=== PATIENT | male | born 1950 | race Caucasian/White ===

== ENCOUNTER → 2019-02-19 | Day surgery (SDC) | payer OTHER ==
[~2019-02-19] VITALS: Ht 182.8 cm; Wt 102.1 kg
[~2019-02-19] MED LIST: DAYPRO600 M1 PO; FLOMAX0.4 MG PO; HCTZ/TRIAMTEREN1 CA2 PO; MIRALAX POWDER255 GM PO; SKELAXIN800 MG PO; ULTRAM50 MG PO; VICODIN 500 MG-1 TAB PO; XANAX0.5 MG PO
--- NOTE | ~2019-02-19 | PROC NOTE ---
[place], [place] PROCEDURE NOTE [facility]: [id number] UNIT #: [id number] ROOM: DOCTOR: HERB GARBER MD,JULIAN BIRTHDATE: [birth year] DOS: 02/19/2019 PROCEDURE: Bronchoscopy and bronchial washing of the right lower lobe. 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 PROCEDURE DESCRIPTION: Informed consent obtained for the patient. He was brought to the OR and placed in a supine position. Conscious sedation administered by the Anesthesia Department. After achieving proper sedation, airway introduced into the mouth. Bronchoscope advanced to the airway into laryngeal area. Epiglottis and vocal cords were seen. Vocal moving symmetrically with movements. Bronchoscope advanced into the tracheal lumen. Tracheal lumen noted. Mild to moderate amount of secretion, which appeared to be mucoid. Secretions suctioned out betty level. Similar secretion present in endobronchial tree subsegments bilaterally as well, which were cleared out. After that, the patient BAL specimen was also obtained in the right lower lobe bronchus subsegment. Procedure was well tolerated by the patient without difficulty. Postoperative findings will be discussed with the patient once the patient recover the effects of acute sedation. JULIAN ESTEVEZ MD CM:PROCNOTE:PROCEDURE NOTE [id number] JULIAN GARBER MD
[2019-02-19 08:00] VITALS: BP 142/73
[2019-02-19 08:57] VITALS: BP 131/78
[2019-02-19 09:12] VITALS: BP 134/81
[2019-02-19 09:27] VITALS: BP 132/77
--- NOTE | 2019-02-19 10:52 | NUR ---
iv fluids discontinued at 0925.
[2019-02-19 12:18] LABS: BF LYMPHOCYTES 11 %; BF MACROPHAGES 8 %; BF NEUTROPHILS 76 %
[2019-02-20 17:08] LABS: ACID FAST SPEC PROCESSING Concentration (.)
[2019-02-20 17:08] LABS: ACID FAST SPEC PROCESSING Concentration (.)
== END | disposition home or self-care (01) ==
LOC: SDC 02-16 10:15
PROVIDERS: Internal Medicine Critical Care Medicine
DX: J84.9 Interstitial pulmonary disease, unspecified (principal); R05 Cough; J05.10 Acute epiglottitis without obstruction; J84.113 Idiopathic non-specific interstitial pneumonitis; I10 Essential (primary) hypertension; M10.9 Gout, unspecified; R63.4 Abnormal weight loss; Z98.890 Other specified postprocedural states; Z79.899 Other long term (current) drug therapy; Z88.8 Allergy status to other drugs, medicaments and biological substances; Z86.73 Personal history of transient ischemic attack (TIA), and cerebral infarction without residual deficits; Z80.1 Family history of malignant neoplasm of trachea, bronchus and lung

== ENCOUNTER → 2019-09-29 | Outpatient (CLI) | payer OTHER ==
[2019-09-29 12:07] LABS: BASO % 0.5 % (0.0-1.0); EOS # 0.2 10*3/uL (0.0-0.4); HEMATOCRIT 48.5 % (42.0-52.0); LYMPH # 1.5 10*3/uL (1.3-4.4); LYMPH % 18.1 % (27.0-41.0); MEAN CELL VOLUME 88.7 fl (80.0-94.0); MEAN CORPUSCULAR HGB CONC 33.8 g/dl (33.0-37.0); MEAN PLATELET VOLUME 9.7 fl (9.6-12.3); MONO # 0.6 10*3/uL (0.1-1.0); MONO % 7.6 % (3.0-9.0); NEUT # 5.8 10*3/uL (2.3-7.9); NEUT % 71.6 % (47.0-73.0); PLATELET COUNT AUTOMATED 241 10*3/uL (130-400); RED BLOOD COUNT 5.47 10*6/uL (4.50-5.90); RED CELL DISTRI WIDTH 12.2 % (0-14.5); WHITE BLOOD COUNT 8.1 10*3/uL (4.8-10.8)
[2019-09-29 12:34] LABS: ALBUMIN 4.2 gm/dl (3.1-4.5); ALKALINE PHOSPHATASE 116 U/L (45-117); BUN 14 mg/dl (7-24); CHLORIDE 99 mmol/L (98-107); CREATININE 1.28 mg/dL (0.70-1.30); POTASSIUM 3.3 mmol/L (3.5-5.1); SGOT/AST 23 IU/L (3-35); SGPT/ALT 29 U/L (12-78); SODIUM 135 mmol/L (136-145)
== END | disposition home or self-care (01) ==
LOC: LAB 11:43
PROVIDERS: Internal Medicine Critical Care Medicine
DX: Z79.899 Other long term (current) drug therapy (principal)

== ENCOUNTER 2020-09-13 11:46 | Inpatient (IN) | payer OTHER ==
[~2020-09-13] VITALS: Ht 180.3 cm; Wt 82.7 kg
[2020-09-13 11:47] VITALS: BP 133/84
[2020-09-13 12:04] VITALS: BP 90/70
[2020-09-13 12:09] LABS: BASO % 0.5 % (0.0-1.0); EOS # 0.2 10*3/uL (0.0-0.4); EOS % 2.2 % (1.0-4.0); HEMATOCRIT 38.1 % (42.0-52.0); LYMPH # 1.2 10*3/uL (1.3-4.4); LYMPH % 13.4 % (27.0-41.0); MEAN CELL VOLUME 86.2 fl (80.0-94.0); MEAN CORPUSCULAR HGB 28.5 pg (27.0-31.0); MEAN CORPUSCULAR HGB CONC 33.1 g/dl (33.0-37.0); MEAN PLATELET VOLUME 9.1 fl (9.6-12.3); MONO # 0.7 10*3/uL (0.1-1.0); MONO % 8.5 % (3.0-9.0); NEUT # 6.6 10*3/uL (2.3-7.9); NEUT % 75.1 % (47.0-73.0); PLATELET COUNT AUTOMATED 318 10*3/uL (130-400); RED BLOOD COUNT 4.42 10*6/uL (4.50-5.90); RED CELL DISTRI WIDTH 12.4 % (0-14.5); WHITE BLOOD COUNT 8.8 10*3/uL (4.8-10.8)
[2020-09-13 12:19] LABS: ACT PARTIAL THROMBO TIME 26.3 SECONDS (20.0-32.1)
[2020-09-13] MEDS ORDERED: TRIAMTERENE & H1 CAP PO (12:20)
[2020-09-13] MEDS ORDERED: BUSPIRONE10 MG PO (12:20)
[2020-09-13] MEDS ORDERED: FELODIPINE5 MG PO (12:20)
[2020-09-13] MEDS ORDERED: TRAZODONE50 MG PO (12:21)
[2020-09-13] MEDS ORDERED: PRASUGREL HCL10 MG PO (12:22)
[2020-09-13] MEDS ORDERED: ESBRIET267 MG PO (12:22)
[2020-09-13] MEDS ORDERED: ASPIRIN CHEWABL81 MG PO (12:22)
[2020-09-13] MEDS ORDERED: PRAVASTATIN SOD20 MG PO (12:24)
[2020-09-13 12:25] LABS: ALBUMIN 3.6 gm/dl (3.1-4.5); ALKALINE PHOSPHATASE 173 U/L (45-117); BUN 19 mg/dl (7-24); CHLORIDE 95 mmol/L (98-107); POTASSIUM 2.9 mmol/L (3.5-5.1); SGOT/AST 25 IU/L (3-35); SGPT/ALT 16 U/L (12-78); SODIUM 135 mmol/L (136-145); TOTAL PROTEIN 9.2 gm/dL (6.4-8.2)
[2020-09-13 12:27] LABS: TROPONIN I < 0.015 ng/ml (<0.045)
[2020-09-13 13:50] VITALS: BP 109/66
[2020-09-13 14:27] VITALS: BP 118/70
[2020-09-13 14:46] LABS: ABG BASE EXCESS 7.5 mmol/L (-2.0-2.0); ARTERIAL BLOOD GAS PH 7.465 (7.35-7.45); ARTERIAL BLOOD GAS PO2 81.9 (80-90)
[2020-09-13 15:21] VITALS: BP 120/98
[2020-09-13 20:00] VITALS: BP 108/71
[2020-09-14] VITALS: BP 125/71
[2020-09-14 06:12] LABS: ALBUMIN 3.1 gm/dl (3.1-4.5); ALKALINE PHOSPHATASE 142 U/L (45-117); BUN 20 mg/dl (7-24); CHLORIDE 98 mmol/L (98-107); CHOLESTEROL 158 mg/dL (<200); CREATININE 0.79 mg/dL (0.70-1.30); FREE T4 0.98 ng/dl (0.76-1.46); LDL CHOLESTEROL 97 mg/dL (9-159); SGOT/AST 20 IU/L (3-35); SGPT/ALT 16 U/L (12-78); TOTAL PROTEIN 8.1 gm/dL (6.4-8.2); TRIGLYCERIDES 67 mg/dl (<150)
[2020-09-14 06:16] LABS: THYROID STIM HORMONE (HS) 0.889 uIU/ml (0.358-4.75)
[2020-09-14 06:17] LABS: BASO % 0.2 % (0.0-1.0); HEMATOCRIT 33.6 % (42.0-52.0); LYMPH # 0.6 10*3/uL (1.3-4.4); LYMPH % 9.7 % (27.0-41.0); MEAN CELL VOLUME 86.8 fl (80.0-94.0); MEAN CORPUSCULAR HGB 28.4 pg (27.0-31.0); MEAN CORPUSCULAR HGB CONC 32.7 g/dl (33.0-37.0); MEAN PLATELET VOLUME 9.8 fl (9.6-12.3); MONO # 0.3 10*3/uL (0.1-1.0); MONO % 4.3 % (3.0-9.0); NEUT # 5.2 10*3/uL (2.3-7.9); NEUT % 85.5 % (47.0-73.0); PLATELET COUNT AUTOMATED 302 10*3/uL (130-400); RED BLOOD COUNT 3.87 10*6/uL (4.50-5.90); RED CELL DISTRI WIDTH 12.5 % (0-14.5); WHITE BLOOD COUNT 6.1 10*3/uL (4.8-10.8)
[2020-09-14 06:27] LABS: SODIUM 135 mmol/L (136-145)
[2020-09-14 06:28] LABS: POTASSIUM 3.9 mmol/L (3.5-5.1)
[2020-09-14 08:00] VITALS: BP 103/77
[2020-09-14 08:09] LABS: VITAMIN D, 25-HYDROXY 38.2 ng/mL (30-100)
[2020-09-14 12:00] VITALS: BP 114/82
[2020-09-14 16:00] VITALS: BP 135/67
[2020-09-14 20:00] VITALS: BP 142/79
[2020-09-15] VITALS: BP 100/64
[2020-09-15 05:58] LABS: HEMATOCRIT 32.2 % (42.0-52.0); LYMPH # 0.7 10*3/uL (1.3-4.4); LYMPH % 8.7 % (27.0-41.0); MEAN CELL VOLUME 87.5 fl (80.0-94.0); MEAN CORPUSCULAR HGB 28.8 pg (27.0-31.0); MEAN CORPUSCULAR HGB CONC 32.9 g/dl (33.0-37.0); MEAN PLATELET VOLUME 9.7 fl (9.6-12.3); MONO # 0.5 10*3/uL (0.1-1.0); MONO % 5.8 % (3.0-9.0); NEUT # 6.8 10*3/uL (2.3-7.9); PLATELET COUNT AUTOMATED 314 10*3/uL (130-400); RED BLOOD COUNT 3.68 10*6/uL (4.50-5.90); RED CELL DISTRI WIDTH 12.6 % (0-14.5); WHITE BLOOD COUNT 8.1 10*3/uL (4.8-10.8)
[2020-09-15 06:11] LABS: BUN 17 mg/dl (7-24); CHLORIDE 99 mmol/L (98-107); CREATININE 0.83 mg/dL (0.70-1.30); POTASSIUM 3.7 mmol/L (3.5-5.1); SODIUM 135 mmol/L (136-145)
[2020-09-15 08:00] VITALS: BP 117/72
[2020-09-15 12:00] VITALS: BP 124/67
[2020-09-15 16:00] VITALS: BP 124/75
[2020-09-15 20:00] VITALS: BP 126/72
[2020-09-16] VITALS: BP 121/67
[2020-09-16 08:00] VITALS: BP 127/76
[2020-09-16 12:00] VITALS: BP 110/67
[2020-09-16] MEDS ORDERED: PREDNISONE10 MG PO (13:15)
== END 2020-09-16 15:09 | disposition home or self-care (01) | DRG 871 ==
LOC: ED 11:46 → EDHOLD 13:29 → 5E 13:29
PROVIDERS: Emergency Medicine; Internal Medicine; Registered Nurse; ADMIT Family Medicine; ATTEND Family Medicine
DX: A41.9 Sepsis, unspecified organism (principal); J96.21 Acute and chronic respiratory failure with hypoxia; J44.1 Chronic obstructive pulmonary disease with (acute) exacerbation; J44.0 Chronic obstructive pulmonary disease with (acute) lower respiratory infection; E87.1 Hypo-osmolality and hyponatremia; R65.20 Severe sepsis without septic shock; J84.10 Pulmonary fibrosis, unspecified; J20.9 Acute bronchitis, unspecified; R63.4 Abnormal weight loss; E78.00 Pure hypercholesterolemia, unspecified; G47.33 Obstructive sleep apnea (adult) (pediatric); F32.9 Major depressive disorder, single episode, unspecified; D64.9 Anemia, unspecified; I11.9 Hypertensive heart disease without heart failure; I25.10 Atherosclerotic heart disease of native coronary artery without angina pectoris; M19.90 Unspecified osteoarthritis, unspecified site; F41.1 Generalized anxiety disorder; R73.9 Hyperglycemia, unspecified; J45.40 Moderate persistent asthma, uncomplicated; Z99.81 Dependence on supplemental oxygen; Z88.5 Allergy status to narcotic agent; Z88.6 Allergy status to analgesic agent; Z98.1 Arthrodesis status; Z95.5 Presence of coronary angioplasty implant and graft; Z82.49 Family history of ischemic heart disease and other diseases of the circulatory system; Z80.8 Family history of malignant neoplasm of other organs or systems; Z79.82 Long term (current) use of aspirin; Z79.899 Other long term (current) drug therapy; Z68.25 Body mass index [BMI] 25.0-25.9, adult

== ENCOUNTER → 2021-01-26 | Outpatient (CLI) | payer OTHER ==
[~2021-01-26] MED LIST changes: +ASPIRIN CHEWABL81 MG PO; +BUSPIRONE10 MG PO; +ESBRIET267 MG PO; +FELODIPINE5 MG PO; +PRASUGREL HCL10 MG PO; +PRAVASTATIN SOD20 MG PO; +PREDNISONE10 MG PO; +TRAZODONE50 MG PO; +TRIAMTERENE & H1 CAP PO
== END | disposition home or self-care (01) ==
LOC: RAD 16:18
PROVIDERS: ATTEND Internal Medicine Critical Care Medicine
DX: J84.9 Interstitial pulmonary disease, unspecified (principal); J96.11 Chronic respiratory failure with hypoxia; J84.112 Idiopathic pulmonary fibrosis; R05.9 Cough, unspecified; Z80.1 Family history of malignant neoplasm of trachea, bronchus and lung; Z99.81 Dependence on supplemental oxygen

== ENCOUNTER 2021-04-25 20:28 | Inpatient (IN) | payer OTHER ==
[~2021-04-25] VITALS: Ht 180.3 cm; Wt 71.8 kg
[2021-04-25 20:30] VITALS: BP 146/90
[2021-04-25 20:52] LABS: BASO % 0.1 % (0.0-1.0); EOS # 0.1 10*3/uL (0.0-0.4); EOS % 0.6 % (1.0-4.0); HEMATOCRIT 48.5 % (42.0-52.0); LYMPH # 1.1 10*3/uL (1.3-4.4); LYMPH % 12.6 % (27.0-41.0); MEAN CELL VOLUME 89.3 fl (80.0-94.0); MEAN CORPUSCULAR HGB 29.3 pg (27.0-31.0); MEAN CORPUSCULAR HGB CONC 32.8 g/dl (33.0-37.0); MEAN PLATELET VOLUME 9.7 fl (9.6-12.3); MONO # 0.5 10*3/uL (0.1-1.0); MONO % 6.2 % (3.0-9.0); NEUT # 6.9 10*3/uL (2.3-7.9); NEUT % 80.3 % (47.0-73.0); PLATELET COUNT AUTOMATED 274 10*3/uL (130-400); RED BLOOD COUNT 5.43 10*6/uL (4.50-5.90); RED CELL DISTRI WIDTH 12.8 % (0-14.5); WHITE BLOOD COUNT 8.6 10*3/uL (4.8-10.8)
[2021-04-25 21:21] LABS: ALBUMIN 3.5 gm/dl (3.1-4.5); ALKALINE PHOSPHATASE 150 U/L (45-117); BUN 30 mg/dl (7-24); CHLORIDE 98 mmol/L (98-107); POTASSIUM 3.2 mmol/L (3.5-5.1); SGOT/AST 26 IU/L (3-35); SGPT/ALT 25 U/L (12-78); SODIUM 137 mmol/L (136-145); TOTAL PROTEIN 8.1 gm/dL (6.4-8.2)
[2021-04-26 00:02] VITALS: BP 132/86
[2021-04-26 02:24] LABS: ABG BASE EXCESS 8.7 mmol/L (-2.0-2.0); ARTERIAL BLOOD GAS PH 7.452 (7.35-7.45); ARTERIAL BLOOD GAS PO2 61.9 (80-90)
[2021-04-26 02:30] VITALS: BP 140/84
[2021-04-26 04:00] VITALS: BP 124/77
[2021-04-26 07:16] LABS: HEMATOCRIT 44.2 % (42.0-52.0); LYMPH # 0.6 10*3/uL (1.3-4.4); LYMPH % 11.1 % (27.0-41.0); MEAN CELL VOLUME 89.7 fl (80.0-94.0); MEAN CORPUSCULAR HGB 28.8 pg (27.0-31.0); MEAN CORPUSCULAR HGB CONC 32.1 g/dl (33.0-37.0); MEAN PLATELET VOLUME 9.8 fl (9.6-12.3); MONO # 0.1 10*3/uL (0.1-1.0); MONO % 2.1 % (3.0-9.0); NEUT # 4.5 10*3/uL (2.3-7.9); NEUT % 86.6 % (47.0-73.0); PLATELET COUNT AUTOMATED 230 10*3/uL (130-400); RED BLOOD COUNT 4.93 10*6/uL (4.50-5.90); RED CELL DISTRI WIDTH 12.6 % (0-14.5); WHITE BLOOD COUNT 5.1 10*3/uL (4.8-10.8)
[2021-04-26 07:26] LABS: ACT PARTIAL THROMBO TIME 26.5 SECONDS (20.0-32.1)
[2021-04-26 07:35] LABS: ALBUMIN 3.1 gm/dl (3.1-4.5); CHLORIDE 101 mmol/L (98-107); CHOLESTEROL 147 mg/dL (<200); CREATININE 0.67 mg/dL (0.70-1.30); SGOT/AST 22 IU/L (3-35); SGPT/ALT 22 U/L (12-78); SODIUM 137 mmol/L (136-145); TOTAL PROTEIN 7.1 gm/dL (6.4-8.2); TRIGLYCERIDES 44 mg/dl (<150)
[2021-04-26 07:41] LABS: ALKALINE PHOSPHATASE 114 U/L (45-117); LDL CHOLESTEROL 68 mg/dL (9-159); THYROID STIM HORMONE (HS) 0.718 uIU/ml (0.358-4.75)
[2021-04-26 08:00] VITALS: BP 128/75
[2021-04-26 08:27] LABS: BUN 20 mg/dl (7-24)
[2021-04-26 09:27] LABS: VITAMIN D, 25-HYDROXY 49.6 ng/mL (30-100)
[2021-04-26 12:00] VITALS: BP 122/70
[2021-04-26 20:00] VITALS: BP 128/84
[2021-04-27] VITALS: BP 121/84
[2021-04-27 07:50] VITALS: BP 122/70
[2021-04-27 08:15] LABS: BASO % 0.2 % (0.0-1.0); EOS # 0.1 10*3/uL (0.0-0.4); EOS % 1.6 % (1.0-4.0); HEMATOCRIT 40.5 % (42.0-52.0); LYMPH # 1.4 10*3/uL (1.3-4.4); LYMPH % 24.2 % (27.0-41.0); MEAN CORPUSCULAR HGB 29.2 pg (27.0-31.0); MEAN CORPUSCULAR HGB CONC 32.1 g/dl (33.0-37.0); MEAN PLATELET VOLUME 10.4 fl (9.6-12.3); MONO # 0.6 10*3/uL (0.1-1.0); MONO % 10.3 % (3.0-9.0); NEUT # 3.6 10*3/uL (2.3-7.9); NEUT % 63.5 % (47.0-73.0); PLATELET COUNT AUTOMATED 206 10*3/uL (130-400); RED BLOOD COUNT 4.45 10*6/uL (4.50-5.90); RED CELL DISTRI WIDTH 12.8 % (0-14.5); WHITE BLOOD COUNT 5.6 10*3/uL (4.8-10.8)
[2021-04-27 08:27] LABS: BUN 14 mg/dl (7-24); CHLORIDE 99 mmol/L (98-107); CREATININE 0.63 mg/dL (0.70-1.30); POTASSIUM 3.2 mmol/L (3.5-5.1); SGOT/AST 15 IU/L (3-35); SGPT/ALT 17 U/L (12-78); SODIUM 139 mmol/L (136-145); TOTAL PROTEIN 6.7 gm/dL (6.4-8.2)
[2021-04-27 08:29] LABS: ARTERIAL BLOOD GAS PH 7.415 (7.35-7.45); ARTERIAL BLOOD GAS PO2 83.6 (80-90)
[2021-04-27 08:30] LABS: ALKALINE PHOSPHATASE 93 U/L (45-117); LDH 143 U/L (87-241)
[2021-04-27 16:00] VITALS: BP 122/83
[2021-04-27 20:00] VITALS: BP 128/59
[2021-04-28] VITALS: BP 101/76
[2021-04-28 06:25] LABS: BASO % 0.2 % (0.0-1.0); EOS # 0.1 10*3/uL (0.0-0.4); EOS % 0.9 % (1.0-4.0); HEMATOCRIT 42.1 % (42.0-52.0); LYMPH # 1.1 10*3/uL (1.3-4.4); LYMPH % 19.5 % (27.0-41.0); MEAN CELL VOLUME 89.8 fl (80.0-94.0); MEAN CORPUSCULAR HGB 29.2 pg (27.0-31.0); MEAN CORPUSCULAR HGB CONC 32.5 g/dl (33.0-37.0); MEAN PLATELET VOLUME 9.9 fl (9.6-12.3); MONO # 0.7 10*3/uL (0.1-1.0); MONO % 12.2 % (3.0-9.0); NEUT # 3.9 10*3/uL (2.3-7.9); NEUT % 66.9 % (47.0-73.0); PLATELET COUNT AUTOMATED 228 10*3/uL (130-400); RED BLOOD COUNT 4.69 10*6/uL (4.50-5.90); RED CELL DISTRI WIDTH 12.5 % (0-14.5); WHITE BLOOD COUNT 5.8 10*3/uL (4.8-10.8)
[2021-04-28 06:43] LABS: BUN 13 mg/dl (7-24); CHLORIDE 99 mmol/L (98-107); CREATININE 0.68 mg/dL (0.70-1.30); POTASSIUM 3.5 mmol/L (3.5-5.1); SODIUM 137 mmol/L (136-145)
[2021-04-28 08:00] VITALS: BP 121/70
[2021-04-28 12:00] VITALS: BP 126/79
[2021-04-28 16:00] VITALS: BP 120/75
[2021-04-28 20:00] VITALS: BP 115/68
[2021-04-29] VITALS: BP 104/60; BP 99/61
[2021-04-29 06:30] LABS: BASO % 0.1 % (0.0-1.0); EOS % 0.6 % (1.0-4.0); HEMATOCRIT 41.4 % (42.0-52.0); LYMPH # 1.2 10*3/uL (1.3-4.4); LYMPH % 17.3 % (27.0-41.0); MEAN CELL VOLUME 90.8 fl (80.0-94.0); MEAN CORPUSCULAR HGB 28.9 pg (27.0-31.0); MEAN CORPUSCULAR HGB CONC 31.9 g/dl (33.0-37.0); MEAN PLATELET VOLUME 9.7 fl (9.6-12.3); MONO # 0.7 10*3/uL (0.1-1.0); MONO % 10.6 % (3.0-9.0); NEUT # 4.8 10*3/uL (2.3-7.9); NEUT % 71.3 % (47.0-73.0); PLATELET COUNT AUTOMATED 204 10*3/uL (130-400); RED BLOOD COUNT 4.56 10*6/uL (4.50-5.90); RED CELL DISTRI WIDTH 12.6 % (0-14.5); WHITE BLOOD COUNT 6.8 10*3/uL (4.8-10.8)
[2021-04-29 06:36] LABS: BUN 13 mg/dl (7-24); CHLORIDE 97 mmol/L (98-107); CREATININE 0.62 mg/dL (0.70-1.30); POTASSIUM 3.5 mmol/L (3.5-5.1); SODIUM 138 mmol/L (136-145)
[2021-04-29 08:00] VITALS: BP 124/79
[2021-04-29 12:00] VITALS: BP 111/69
[2021-04-29 16:00] VITALS: BP 115/59
[2021-04-29 20:00] VITALS: BP 101/67
[2021-04-30] VITALS: BP 110/68
[2021-04-30 06:55] LABS: BASO % 0.3 % (0.0-1.0); EOS # 0.3 10*3/uL (0.0-0.4); EOS % 3.7 % (1.0-4.0); HEMATOCRIT 42.2 % (42.0-52.0); LYMPH # 1.1 10*3/uL (1.3-4.4); MEAN CELL VOLUME 90.2 fl (80.0-94.0); MEAN CORPUSCULAR HGB 29.3 pg (27.0-31.0); MEAN CORPUSCULAR HGB CONC 32.5 g/dl (33.0-37.0); MEAN PLATELET VOLUME 9.4 fl (9.6-12.3); MONO # 0.7 10*3/uL (0.1-1.0); MONO % 9.4 % (3.0-9.0); NEUT # 5.2 10*3/uL (2.3-7.9); NEUT % 71.3 % (47.0-73.0); PLATELET COUNT AUTOMATED 200 10*3/uL (130-400); RED BLOOD COUNT 4.68 10*6/uL (4.50-5.90); RED CELL DISTRI WIDTH 12.8 % (0-14.5); WHITE BLOOD COUNT 7.3 10*3/uL (4.8-10.8)
[2021-04-30 07:10] LABS: BUN 12 mg/dl (7-24); CHLORIDE 97 mmol/L (98-107); CREATININE 0.66 mg/dL (0.70-1.30); POTASSIUM 3.5 mmol/L (3.5-5.1); SODIUM 138 mmol/L (136-145)
[2021-04-30 08:00] VITALS: BP 122/72
[2021-04-30 12:00] VITALS: BP 112/72
[2021-04-30] MEDS ORDERED: DEXAMETHASONE6 MG PO (14:44)
[2021-04-30] MEDS ORDERED: FLUONAZOLE150 M1 PO (14:44)
[2021-04-30] MEDS ORDERED: DOXYCYCLINE MO100 M1 PO (14:44)
[2021-04-30] MEDS ORDERED: OXYGEN NAS (14:46)
[2021-04-30 16:00] VITALS: BP 109/82
[2021-04-30 20:00] VITALS: BP 111/68
[2021-05-01] VITALS: BP 102/69
[2021-05-01 06:31] LABS: BASO % 0.3 % (0.0-1.0); EOS # 0.3 10*3/uL (0.0-0.4); EOS % 5.3 % (1.0-4.0); HEMATOCRIT 42.5 % (42.0-52.0); LYMPH # 1.1 10*3/uL (1.3-4.4); LYMPH % 17.7 % (27.0-41.0); MEAN CORPUSCULAR HGB 29.9 pg (27.0-31.0); MEAN CORPUSCULAR HGB CONC 33.2 g/dl (33.0-37.0); MEAN PLATELET VOLUME 9.9 fl (9.6-12.3); MONO # 0.7 10*3/uL (0.1-1.0); MONO % 10.9 % (3.0-9.0); NEUT # 4.2 10*3/uL (2.3-7.9); NEUT % 65.3 % (47.0-73.0); PLATELET COUNT AUTOMATED 219 10*3/uL (130-400); RED BLOOD COUNT 4.72 10*6/uL (4.50-5.90); RED CELL DISTRI WIDTH 12.7 % (0-14.5); WHITE BLOOD COUNT 6.4 10*3/uL (4.8-10.8)
[2021-05-01 06:46] LABS: CHLORIDE 97 mmol/L (98-107); POTASSIUM 3.5 mmol/L (3.5-5.1); SODIUM 139 mmol/L (136-145)
[2021-05-01 07:01] LABS: ALKALINE PHOSPHATASE 115 U/L (45-117); BUN 9 mg/dl (7-24); CREATININE 0.71 mg/dL (0.70-1.30); SGOT/AST 24 IU/L (3-35); SGPT/ALT 21 U/L (12-78); TOTAL PROTEIN 6.7 gm/dL (6.4-8.2)
[2021-05-01 08:00] VITALS: BP 106/67
[2021-05-01 12:00] VITALS: BP 115/64
[2021-05-01 16:00] VITALS: BP 108/84
[2021-05-01 20:00] VITALS: BP 111/78
[2021-05-02] VITALS: BP 100/59
[2021-05-02 08:00] VITALS: BP 106/62
[2021-05-02 09:27] VITALS: BP 130/80
[2021-05-02 12:00] VITALS: BP 117/77
[2021-05-02 16:00] VITALS: BP 119/78
[2021-05-02 20:00] VITALS: BP 116/63
[2021-05-03] VITALS: BP 108/74
[2021-05-03 08:00] VITALS: BP 106/87
[2021-05-03 12:00] VITALS: BP 104/79
[2021-05-03 16:00] VITALS: BP 113/76
[2021-05-03 20:00] VITALS: BP 108/73
[2021-05-04] VITALS: BP 113/66
[2021-05-04 08:00] VITALS: BP 110/66
[2021-05-04 12:00] VITALS: BP 123/76
== END 2021-05-04 17:30 | DRG 871 ==
LOC: ED 20:28 → 4E 22:22 → EDHOLD 22:22 → 4E 04-26 01:43
PROVIDERS: Hospitalist; Internal Medicine; Internal Medicine Critical Care Medicine; Student in an Organized Health Care Education/Training Program; ADMIT Internal Medicine; ATTEND Internal Medicine
PROC: 5A0935A Assistance with Respiratory Ventilation, Less than 24 Consecutive Hours, High Flow/Velocity Cannula (ICD-10-PCS; principal; 2021-04-26)
PROC: 5A09357 Assistance with Respiratory Ventilation, Less than 24 Consecutive Hours, Continuous Positive Airway Pressure (ICD-10-PCS; 2021-04-26)
PROC: 5A0955A Assistance with Respiratory Ventilation, Greater than 96 Consecutive Hours, High Flow/Velocity Cannula (ICD-10-PCS; 2021-04-26)
DX: A41.9 Sepsis, unspecified organism (principal); J18.9 Pneumonia, unspecified organism; J96.21 Acute and chronic respiratory failure with hypoxia; J96.22 Acute and chronic respiratory failure with hypercapnia; F33.9 Major depressive disorder, recurrent, unspecified; G47.33 Obstructive sleep apnea (adult) (pediatric); J98.2 Interstitial emphysema; E78.00 Pure hypercholesterolemia, unspecified; Z20.822 Contact with and (suspected) exposure to COVID-19; R65.20 Severe sepsis without septic shock; E87.6 Hypokalemia; R73.9 Hyperglycemia, unspecified; I25.10 Atherosclerotic heart disease of native coronary artery without angina pectoris; I10 Essential (primary) hypertension; J20.9 Acute bronchitis, unspecified; F41.1 Generalized anxiety disorder; Z88.5 Allergy status to narcotic agent; Z88.6 Allergy status to analgesic agent; Z99.81 Dependence on supplemental oxygen; Z95.5 Presence of coronary angioplasty implant and graft; Z79.82 Long term (current) use of aspirin; Z79.899 Other long term (current) drug therapy

== ENCOUNTER 2021-05-28 04:50 | Emergency (ER) | payer OTHER ==
[~2021-05-28] VITALS: Ht 180.3 cm; Wt 68.0 kg
[~2021-05-28 04:50] MED LIST changes: +DEXAMETHASONE6 MG PO; +DOXYCYCLINE MO100 M1 PO; +FLUONAZOLE150 M1 PO; +OXYGEN NAS
[2021-05-28 05:14] LABS: BILIRUBIN Negative (Negative); BLOOD Negative (Negative); CLARITY Clear (Clear); COLOR Dark Yellow (Yellow); GLUCOSE Negative (Negative); KETONE Trace (Negative); LEUKO ESTERASE Negative (Negative); NITRITE Negative (Negative)
[2021-05-28 05:42] LABS: BACTERIA TRACE; RBC 0-2 rbc/hpf (0-2); WBC 0-2 wbc/hpf (0-5)
[2021-05-28 05:54] LABS: BASO % 0.1 % (0.0-1.0); EOS # 0.1 10*3/uL (0.0-0.4); EOS % 1.2 % (1.0-4.0); HEMATOCRIT 46.1 % (42.0-52.0); LYMPH # 0.9 10*3/uL (1.3-4.4); LYMPH % 8.7 % (27.0-41.0); MEAN CELL VOLUME 86.7 fl (80.0-94.0); MEAN CORPUSCULAR HGB 29.1 pg (27.0-31.0); MEAN CORPUSCULAR HGB CONC 33.6 g/dl (33.0-37.0); MEAN PLATELET VOLUME 9.1 fl (9.6-12.3); MONO # 0.8 10*3/uL (0.1-1.0); MONO % 7.6 % (3.0-9.0); NEUT % 80.9 % (47.0-73.0); PLATELET COUNT AUTOMATED 303 10*3/uL (130-400); RED BLOOD COUNT 5.32 10*6/uL (4.50-5.90); RED CELL DISTRI WIDTH 12.2 % (0-14.5); WHITE BLOOD COUNT 9.9 10*3/uL (4.8-10.8)
[2021-05-28 06:06] LABS: ALBUMIN 3.7 gm/dl (3.1-4.5); ALKALINE PHOSPHATASE 124 U/L (45-117); BUN 23 mg/dl (7-24); CHLORIDE 84 mmol/L (98-107); CREATININE 0.84 mg/dL (0.70-1.30); POTASSIUM 5.2 mmol/L (3.5-5.1); SGOT/AST 23 IU/L (3-35); SGPT/ALT 30 U/L (12-78); SODIUM 130 mmol/L (136-145); TOTAL PROTEIN 7.6 gm/dL (6.4-8.2)
== END 2021-05-28 13:01 | disposition short-term general hospital (02) ==
LOC: ED 04:50
PROVIDERS: Emergency Medicine
DX: J98.2 Interstitial emphysema (principal); R33.9 Retention of urine, unspecified; I25.10 Atherosclerotic heart disease of native coronary artery without angina pectoris; I10 Essential (primary) hypertension; E78.00 Pure hypercholesterolemia, unspecified; Z88.6 Allergy status to analgesic agent; Z79.899 Other long term (current) drug therapy; Z79.82 Long term (current) use of aspirin; Z98.890 Other specified postprocedural states